=== PATIENT | male | born 1975 | race Caucasian/White ===

== ENCOUNTER 2016-10-04 23:25 | Emergency (ER) | payer OTHER ==
[2016-10-05 02:01] VITALS: BP 124/71
== END 2016-10-05 01:45 | disposition home or self-care (01) ==
LOC: ED 23:25
DX: K08.89 Other specified disorders of teeth and supporting structures (principal)

== ENCOUNTER 2018-07-14 22:32 | Emergency (ER) | payer OTHER ==
[~2018-07-14] VITALS: Ht 170.2 cm; Wt 93.0 kg
[2018-07-14 22:46] VITALS: Ht 170.2 cm; Wt 93.0 kg
[2018-07-15 01:37] VITALS: BP 128/77
== END 2018-07-15 01:37 | disposition home or self-care (01) ==
LOC: ED 22:32
DX: K08.89 Other specified disorders of teeth and supporting structures (principal); R09.81 Nasal congestion; F17.210 Nicotine dependence, cigarettes, uncomplicated; Z71.6 Tobacco abuse counseling
CPT/HCPCS: 99406

== ENCOUNTER 2019-05-29 20:53 | Emergency (ER) | payer BC ==
[~2019-05-29] VITALS: Ht 167.6 cm; Wt 93.9 kg
[2019-05-29 21:12] VITALS: BP 105/67; Ht 167.6 cm; Wt 93.9 kg
== END 2019-05-29 22:21 | disposition left against medical advice (07) ==
LOC: ED 20:53
DX: Z53.21 Procedure and treatment not carried out due to patient leaving prior to being seen by health care provider (principal)